=== PATIENT | female | born 2000 | race American Indian/Alaskan Native ===

== ENCOUNTER 2021-04-29 18:17 | Emergency (ER) | payer SELFPAY | END 2021-04-29 22:00 | disposition left against medical advice (07) | LOC: ED 18:17 | DX: R10.9 Unspecified abdominal pain (principal); Z53.21 Procedure and treatment not carried out due to patient leaving prior to being seen by health care provider ==

== ENCOUNTER 2021-11-03 01:51 | Emergency (ER) | payer SELFPAY ==
[2021-11-03 02:10] VITALS: BP 115/62
[2021-11-03 03:06] LABS: HCG Qualitative,Urine Negative (Negative)
[2021-11-03 03:34] LABS: Basophils % (Auto) 0.5 % (0.0-1.8); Eosinophils # (Auto) 0.3 K/mm3 (0.0-0.4); Hematocrit 37.8 % (30.3-42.9); Hemoglobin 12.3 gm/dl (10.1-14.3); Lymphocytes # (Auto) 1.7 K/mm3 (1.2-5.4); Lymphocytes % (Auto) 23.9 % (13.4-35.0); Mean Corpuscular HGB Conc 33 % (30-34); Mean Corpuscular Volume 87 fl (79-97); Monocytes # (Auto) 0.8 K/mm3 (0.0-0.8); Monocytes % (Auto) 10.5 % (0.0-7.3); Platelet Count 301 K/mm3 (140-440); Red Blood Count 4.32 M/mm3 (3.65-5.03); Red Cell Distribution Width 13.6 % (13.2-15.2)
[2021-11-03 03:54] LABS: BUN/Creatinine Ratio 8; Blood Urea Nitrogen 7 mg/dL (7-17); Calcium 8.9 mg/dL (8.4-10.2); Hemolysis Index 5
--- NOTE | 2021-11-03 11:19 | Electrocardiograph Report ---
[facility] Test Date: 2021-11-03 Test Time: 02:18:30 Pat Name: VILMA CAMPOVERDE Department: Room: Gender: F Delivery Man: TECH : 2000 Requested By: DION GUPTA Order Number: [id number] Reading MD: Keith Chan Measurements Intervals [place] Rate: 64 P: 54 [place]: 129 QRS: 42 QRSD: 74 T: 26 QT: 412 QTc: 420 Interpretive Statements Sinus rhythm Atrial premature complex Low voltage, precordial leads No previous ECG available for comparison Electronically Signed On 11-03-2021 11:18:49 EDT by Keith Chan
== END 2021-11-04 23:06 | disposition left against medical advice (07) ==
LOC: ED 01:51
DX: R07.9 Chest pain, unspecified (principal); Z53.21 Procedure and treatment not carried out due to patient leaving prior to being seen by health care provider
CPT/HCPCS: 36415; 80048; 81025; 83690; 84484; 85025; 93005

== ENCOUNTER 2021-11-06 00:39 | Emergency (ER) | payer SELFPAY ==
[2021-11-06] MEDS ORDERED: SODIUM CHLORIDE 0.9% 1000 ML 1,000 ML IV ONE (01:34)
[2021-11-06] MEDS ORDERED: ONDANSETRON 4 MG/2 ML INJ IV ONE (01:34)
[2021-11-06] MEDS ORDERED: levETIRAcetam 1000 MG/NS 0.75% 1,000 MG/100 ML BAG IV ONE (01:35)
[2021-11-06 01:36] LABS: Basophils % (Auto) 0.5 % (0.0-1.8); Eosinophils # (Auto) 0.1 K/mm3 (0.0-0.4); Eosinophils % (Auto) 0.8 % (0.0-4.3); Hematocrit 38.3 % (30.3-42.9); Hemoglobin 12.7 gm/dl (10.1-14.3); Lymphocytes # (Auto) 1.3 K/mm3 (1.2-5.4); Lymphocytes % (Auto) 14.1 % (13.4-35.0); Mean Corpuscular HGB Conc 33 % (30-34); Mean Corpuscular Volume 86 fl (79-97); Monocytes # (Auto) 0.8 K/mm3 (0.0-0.8); Monocytes % (Auto) 8.2 % (0.0-7.3); Platelet Count 313 K/mm3 (140-440); Red Blood Count 4.44 M/mm3 (3.65-5.03); Red Cell Distribution Width 13.3 % (13.2-15.2)
--- NOTE | 2021-11-06 01:41 | Emergency Department Report ---
ED Seizure HPI - General Chief Complaint: Seizure Stated Complaint: SEIZURE Time Seen by Provider: 11/06/21 01:33 Source: patient Mode of arrival: Stretcher Limitations: No Limitations - History of Present Illness Initial Comments: 21-year-old female with a history of seizure who now presents with several seizure episode that started this morning progressively getting worse. Patient reported that she has not had seizure medicine for the last 30 days because she ran out. No fever or chills reported. Patient denies any urinary symptoms. Patient mentions some nausea without emesis. Patient denies any fall or trauma to the brain. No other modifying or associated factors reported. - Related Data Previous Rx's Medication Instructions Recorded Last Taken Type levETIRAcetam [Keppra TAB] 750 mg PO BID 30 Days #60 tab NS 11/06/21 Unknown Rx Allergies Allergy/AdvReac Type Severity Reaction Status Date / Time No Known Allergies Allergy Unverified 11/03/21 02:10 ED Review of Systems ROS: Stated complaint: SEIZURE Other details as noted in HPI Comment: All other systems reviewed and negative Gastrointestinal: nausea. denies: vomiting Psychiatric: other (Seizure) ED Past Medical Hx - Past Medical History Previous Medical History?: Yes Hx Seizures: Yes Hx Psychiatric Treatment: Yes (Anxiety) Hx Asthma: Yes - Surgical History Past Surgical History?: No - Social History Smoking Status: Never Smoker Substance Use Type: Marijuana - Medications Home Medications: Home Medications Medication Instructions Recorded Confirmed Last Taken Type levETIRAcetam [Keppra TAB] 750 mg PO BID 30 Days #60 tab NS 11/06/21 Unknown Rx ED Physical Exam - General Limitations: No Limitations General appearance: postictal - Head Head exam: Present: normal inspection - Eye Eye exam: Present: normal appearance Pupils: Present: normal accommodation - ENT ENT exam: Present: normal exam, normal orophraynx, mucous membranes dry - Neck Neck exam: Present: normal inspection, full ROM. Absent: tenderness - Respiratory Respiratory exam: Present: normal lung sounds bilaterally. Absent: respiratory distress, accessory muscle use - Cardiovascular Cardiovascular Exam: Present: regular rate, normal rhythm, normal heart sounds - GI/Abdominal GI/Abdominal exam: Present: soft, normal bowel sounds. Absent: distended, tenderness - Extremities Exam Extremities exam: Present: normal inspection, full ROM, normal capillary refill. Absent: tenderness, pedal edema - Back Exam Back exam: Absent: tenderness - Neurological Exam Neurological exam: Present: alert, oriented X3 - Psychiatric Psychiatric exam: Present: normal affect, normal mood - Skin Skin exam: Present: warm, normal color ED Course Vital Signs 11/06/21 11/06/21 11/06/21 00:39 01:12 01:21 Temperature 98 F Pulse Rate 68 78 Respiratory 18 16 14 Rate Blood Pressure 129/65 Blood Pressure 119/79 [Right] O2 Sat by Pulse 99 97 97 Oximetry 11/06/21 11/06/21 11/06/21 01:31 01:45 02:01 Temperature Pulse Rate 58 L 53 L 57 L Respiratory 16 14 21 Rate Blood Pressure 115/55 115/55 115/55 Blood Pressure [Right] O2 Sat by Pulse 98 99 97 Oximetry 11/06/21 11/06/21 11/06/21 02:15 02:31 02:45 Temperature Pulse Rate 50 L 56 L 62 Respiratory 17 19 21 Rate Blood Pressure 115/55 115/55 143/83 Blood Pressure [Right] O2 Sat by Pulse 99 99 95 Oximetry 11/06/21 03:08 Temperature Pulse Rate 61 Respiratory 16 Rate Blood Pressure Blood Pressure 147/93 [Right] O2 Sat by Pulse 96 Oximetry ED Medical Decision Making - Lab Data Result diagrams: 11/06/21 01:17 11/06/21 01:17 - Medical Decision Making Here with possible seizure -- but considering this patients age and recent right carotid endarterectomy other differential such as stroke, myocardial infarction, hepatic encephalopathy, systemic infection with sepsis cannot be ruled out. In order to rule out those above we will go ahead and order CT scan of the brain, CBC, CMP, urinalysis, for any infectious process or electrolyte abnormality and thyroid panel for any hypo or hyper thyroidism. In the meantime we will go ahead and give Keppra 1 g IV piggyback x1. Lab reviewed and noted to be within normal limit-- except minimally low K+ 3.3 given potassium 20 mEq PO x 1-- and pt reassured and d/c home with short course of keppra 750 mg BID x 30 days to give this patient chance to follow up -- Critical care attestation.: If time is entered above; I have spent that time in minutes in the direct care of this critically ill patient, excluding procedure time. ED Disposition Clinical Impression: Seizure Disposition: HOME / SELF CARE / HOMELESS Is pt being admited?: No Does the pt Need Aspirin: No Condition: Stable Instructions: Seizure, Adult, [id number] Additional Instructions: It is very important that you take your seizure medication as prescribed to kaylie owen to help your seizure and stabilize your episodes Call and schedule follow-up with your neurologist/primary doctor in the next 3 to 5 days for progress Please do not hesitate to call or return to emergency room if your symptoms worsen Prescriptions: levETIRAcetam [Keppra TAB] 750 mg PO BID 30 Days #60 tab NS Time of Disposition: 05:11
[2021-11-06 01:57] LABS: BUN/Creatinine Ratio 11; Blood Urea Nitrogen 10 mg/dL (7-17); Calcium 9.2 mg/dL (8.4-10.2); Hemolysis Index 2
[2021-11-06] MEDS ORDERED: fentaNYL 100 MCG/2 ML INJ IV ONE (02:32)
[2021-11-06 02:50] LABS: Alanine Aminotransferase 24 units/L (7-56)
[2021-11-06 02:51] LABS: Bilirubin,Direct < 0.2 mg/dL (0-0.2)
[2021-11-06 03:00] LABS: Free T4 (Free Thyroxine) 1.24 ng/dL (0.76-1.46)
[2021-11-06] MEDS ORDERED: POTASSIUM CHLORIDE ER 20 MEQ TAB PO ONE (05:07)
[2021-11-06 06:04] VITALS: BP 127/76
== END 2021-11-06 06:09 | disposition home or self-care (01) ==
LOC: ED 00:39
DX: R56.9 Unspecified convulsions (principal); F41.9 Anxiety disorder, unspecified; J45.909 Unspecified asthma, uncomplicated; Z79.899 Other long term (current) drug therapy
CPT/HCPCS: 36415; 80048; 80076; 80177; 84439; 84443; 84703; 85025; 96361; 96374; 96375; 99284; J1953; J2405; J3010; J7030